=== PATIENT | male | born 1990 | race Caucasian/White ===

== ENCOUNTER 2018-07-08 20:32 | Outpatient (CLI) | payer OTHER | END 2018-07-08 20:33 | disposition critical access hospital (66) | LOC: EMS 20:32 | PROVIDERS: ATTEND Surgery | DX: R41.82 Altered mental status, unspecified (principal); V89.2XXA Person injured in unspecified motor-vehicle accident, traffic, initial encounter; Y93.89 Activity, other specified; Y92.414 Local residential or business street as the place of occurrence of the external cause | CPT/HCPCS: A0425; A0429 ==

== ENCOUNTER 2018-07-08 20:46 | Emergency (ER) | payer OTHER ==
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
[2018-07-08 23:06] VITALS: BP 152/82
== END 2018-07-08 23:31 | disposition home or self-care (01) ==
LOC: EDUNIT# → ED 20:46
DX: R40.4 Transient alteration of awareness (principal); F19.920 Other psychoactive substance use, unspecified with intoxication, uncomplicated; V47.5XXA Car driver injured in collision with fixed or stationary object in traffic accident, initial encounter; Y92.410 Unspecified street and highway as the place of occurrence of the external cause
CPT/HCPCS: 36415; 99282; 99283